=== PATIENT | male | born 1945 | race Caucasian/White ===

== ENCOUNTER 2022-12-27 10:46 | Emergency (ER) | payer OTHER, SELFPAY ==
[2022-12-27] VITALS (16 sets, daily range): BP systolic 108–148; BP diastolic 56–80; PULSE 87; RESP 18; TEMP 36.7; O2SAT 91–100
--- NOTE | ~2022-12-27 | CT_ITS ---
EXAMINATION: CT abdomen pelvis w con DATE: 12/27/2022 12:40 INDICATION: Diffuse abdominal pain TECHNIQUE: Computed tomography (CT) of the abdomen and pelvis was performed without intravenous contr ast. Automated exposure control and iterative reconstruction technique were employed. The dose-length product was 999.88 mGy-cm. COMPARISON: None FINDINGS: Mild dependent atelectasis in bilateral lower lobes and mild discoid atelectasis in the lingula. And calcified right lower lobe nodule along with calcified bilateral hilar lymph nodes and a few splenic calcific lesions, all consistent with old granulomatous disease. Heart size is normal. Atheroscleroti c coronary artery calcifications and aortic valve and mitral annular calcific location. No pericardia l or pleural effusion. Small sliding-type hiatal hernia. Liver, gallbladder, pancreas, bilateral adre nal glands and kidneys are normal. There is mild colonic diverticulosis with a sigmoid predominance. There is no adjacent inflammatory change to suggest diverticulitis. Small bowel and appendix are nor mal. Bladder is normal. Prostatomegaly measuring 5.6 x 4.5 cm. No free intraperitoneal gas or fluid. No pathologically enlarged abdominal or pelvic lymphadenopathy. Moderate lumbar spondylosis. 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 IMPRESSION: 1. No acute intra-abdominal/pelvic process. 2. Small sliding-type hiatal hernia. 3. Mild diverticulosis. 4. Prostatomegaly. Reviewed, dictated and finalized at location B.
[2022-12-27 11:05] LABS: Basophils Absolute Auto 0.1 K/mm3 (0.0-0.1); Basophils Percent Auto 0.9 % (0.2-1.2); Eosinophils Absolute Auto 0.1 K/mm3 (0-0.3); Eosinophils Percent Auto 0.6 % (0-4.4); Hematocrit 36.3 % (42.0-52.0); Hemoglobin 10.9 g/dL (14.0-18.0); Immature Granulocyte Absolute 0.03 K/mm3 (0.00-0.031); Immature Granulocyte Percent A 0.4 % (0-0.5); Lymphocytes Absolute Auto 1.93 K/mm3 (0.9-3.2); Lymphocytes Percent Auto 24.4 % (18.3-44.2); Mean Corpuscular Hemoglobin 26.1 pg (26-34); Mean Corpuscular Volume 86.8 fl (80-100); Monocytes Absolute Auto 0.7 K/mm3 (0.1-0.6); Monocytes Percent Auto 8.2 % (2.6-8.5); Neutrophils Absolute Auto 5.2 K/mm3 (1.3-6.7); Neutrophils Percent Auto 65.5 % (45.5-73.1); Platelet Count Result 281 k/mm3 (150-375); Red Blood Count 4.18 M/mm3 (4.6-6.20); Red Cell Distribution Width 13.7 % (11.5-14.5); White Blood Count 7.9 K/mm3 (4.5-10.0)
[2022-12-27 11:14] LABS: Alanine Aminotransferase 16 U/L (6-50); Albumin Level 4.3 g/dL (3.5-5.1); Alkaline Phosphatase 58 U/L (38-126); Anion Gap 8 mmol/L (8-16); Aspartate Amino Transferase 25 U/L (17-59); Bilirubin,Total 1.2 mg/dL (0.2-1.3); Blood Urea Nitrogen 33 mg/dL (9-20); Calcium 8.8 mg/dL (8.4-10.2); Carbon Dioxide 23 mmol/L (22-30); Chloride 103 mmol/L (98-107); Estimated CRCL calculation 31 ml/min; Estimated Glomerular Filt Rate 37; Glucose 136 mg/dL (65-110); Lipase 138 U/L (23-300); Potassium 3.8 mmol/L (3.4-5.0); Sodium 134 mmol/L (137-145)
[2022-12-27] MEDS: SODIUM CHLORIDE 0.9% IV 1,000 ML 999 ML IV CONT ×2 (12:16→13:39)
[2022-12-27] MEDS: ONDANSETRON INJ 4 MG/2 ML VIAL IV PUSH (12:17)
[2022-12-27] MEDS: ACETAMINOPHEN 500 MG TABLET 1000 MG PO (12:23)
[2022-12-27 13:27] LABS: Bacteria Urine None Seen /hpf; Squamous Epithelial Cell Urine Occasional /hpf (Few)
[2022-12-27 13:50] LABS: Appearance Urine Clear (Clear); Bilirubin Urine Negative (Negative); Color Urine Yellow (Yellow); Glucose Urine UA 3+ mg/dL (Negative); Ketones Urine Trace mg/dL (Negative); Leukocyte Esterase Ur Negative LEU/UL (Negative); Nitrate Urine Negative (Negative); Protein Urine 1+ mg/dL (Negative)
[2022-12-27 14:24] LABS: Specific Grav Ur 1.039 (1.001-1.035)
[2022-12-27 14:25] LABS: Add Urine Microscopic? YES
--- NOTE | 2022-12-27 14:34 | ED.ABDPAIN ---
HPI - Abdominal Pain General Chief Complaint: Abdominal Pain Stated Complaint: Stomach problems Time Seen by Provider: 12/27/22 11:34 History of Present Illness HPI narrative: This is a 77-year-old male, with past history of diabetes on Jardiance, the presents emergency department complaining of 3 days of nausea and vomiting. The patient states approximately 3 days ago, he began feeling diffuse abdominal pain associated with nausea and vomited multiple times. He denies blood in the vomit, diarrhea, fevers or chills. He states his symptoms briefly improved approximately 2 days ago but returned yesterday after eating 2. Of this. He also notes he was recently increased on his dose of Jardiance approximately 1 week ago from 10 mg to 25 mg. Related Data Allergies Allergy/AdvReac Type Severity Reaction Status Date / Time No Known Allergies Allergy Verified 12/27/22 12:13 Review of Systems Review of Systems: CONSTITUTIONAL: Denies fever, chills, or sweats. CARDIOVASCULAR: Denies chest pain, palpitations, or edema. RESPIRATORY: Denies cough or dyspnea. GASTROINTESTINAL: Diffuse abdominal pain, nausea and nonbloody vomiting denies diarrhea. GENITOURINARY: Denies dysuria or hematuria. SKIN: Denies rash or itching. MUSCULOSKELETAL: Denies back pain, joint pain, or myalgia. NEUROLOGIC: Denies headache, numbness, dizziness, or weakness. PSYCHIATRIC: Denies anxiety or depression. PMFSH Past Medical History Medical History Diabetes mellitus Hypertension Surgical History Surgical History No significant past surgical history Social History Social History Smoking status: Never smoker Alcohol intake: current Drinks per week: 1 Substance use: never Exam Narrative: GENERAL: Well-developed, well-nourished, and in no acute distress. HEAD: Normocephalic, atraumatic. EYES: PERRLA and EOMI. ENT: Nares clear, no rhinorrhea or epistaxis. Mucous membranes moist. Oropharynx without tonsillar hypertrophy exudate or other lesions. CHEST: Clear to auscultation. No respiratory distress. No wheezes rales or rhonchi HEART: Regular rate and rhythm. No murmur heard. Normal peripheral pulses. ABDOMEN: Soft, nontender, nondistended, normal active bowel sounds. EXTREMITIES: Normal range of motion. No edema. SKIN: Warm, dry, no rash. NEURO: No focal deficits. Alert and oriented x3. PSYCH: Normal mood and affect. Course Course Emergency Course: 14:00 - CT abdomen pelvis unremarkable. Chemistries demonstrate a creatinine of 1.8 with a normal bicarb. Sodium slightly decreased at 134. CBC unremarkable. Is unclear if the patient has chronic kidney disease. After further discussion with him he appears to remember this. We will attempt to contact the patient's primary care facility if available. We will give an additional liter of fluids and repeat BMP. Overall, the patient states he feels much improved and is comfortable with p.o. challenge. Vital Signs Vital signs: Vital Signs Temperature 98.1 F 12/27/22 10:49 Pulse Rate 87 12/27/22 10:49 Respiratory Rate 18 12/27/22 10:49 Blood Pressure 108/56 L 12/27/22 10:49 Pulse Oximetry 100 12/27/22 10:49 Oxygen Delivery Room Air 12/27/22 10:49 Temperature 98.1 F 12/27/22 10:49 Pulse Rate 87 12/27/22 10:49 Respiratory Rate 18 12/27/22 10:49 Blood Pressure 137/68 12/27/22 15:30 Pulse Oximetry 91 12/27/22 13:02 Oxygen Delivery Room Air 12/27/22 10:49 MDM - Abdominal Pain MDM Narrative Medical decision making narrative: Plan: Labs, imaging, IV fluids, antiemetics, reassess Differential Diagnosis Differential diagnosis: Likely acute appendicitis, constipation, diverticulitis, gastroenteritis, pancreatitis, small bowel obstruction and other (Metabolic abnormality, obst
[2022-12-27 15:03] LABS: Anion Gap 5 mmol/L (8-16); Blood Urea Nitrogen 32 mg/dL (9-20); Calcium 7.8 mg/dL (8.4-10.2); Carbon Dioxide 22 mmol/L (22-30); Chloride 105 mmol/L (98-107); Estimated CRCL calculation 37 ml/min; Estimated Glomerular Filt Rate 45; Glucose 70 mg/dL (65-110); Sodium 132 mmol/L (137-145)
== END 2022-12-27 15:51 | disposition home or self-care (01) ==
PROVIDERS: Emergency Provider Preventive Medicine Aerospace Medicine; PCP Internal Medicine
DX: R11.2 Nausea with vomiting, unspecified (principal); R94.4 Abnormal results of kidney function studies; E11.9 Type 2 diabetes mellitus without complications; I10 Essential (primary) hypertension
CPT/HCPCS: 36415; 74177; 80048; 80053; 81001; 83690; 85025; 87086; 96361; 96374; 99284; A9270; J2405; J7030; Q9967